=== PATIENT | male | born 1975 | race African-American/Black ===

== ENCOUNTER 2021-09-11 16:47 | Emergency (ER) | payer OTHER, SELFPAY ==
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
[2021-09-11 16:48] VITALS: BP 145/98; PULSE 116; RESP 20; TEMP 36.6; O2SAT 100
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
[2021-09-11 17:55] VITALS: PULSE 101; RESP 16; O2SAT 98
== END 2021-09-11 18:06 | disposition home or self-care (01) ==
PROVIDERS: Emergency Provider Nurse Practitioner Family
DX: S13.4XXA Sprain of ligaments of cervical spine, initial encounter (principal); V49.88XA Car occupant (driver) (passenger) injured in other specified transport accidents, initial encounter
CPT/HCPCS: 72040; 99283